=== PATIENT | male | born 1975 | race Caucasian/White ===

== ENCOUNTER 2022-05-01 19:35 | Emergency (ER) | payer BC, SELFPAY ==
--- NOTE | 2022-05-01 20:30 | DI.RAD_ITS ---
Exam(s) XR CHEST 2V PA LATERAL EXAM: XR CHEST 2V PA LATERAL CLINICAL HISTORY: persistent productive cough TECHNIQUE: 2D digital imaging was performed. COMPARISON: No exams were available for comparison FINDINGS: MEDIASTINUM: Normal. HEART: Normal. PULMONARY VASCULATURE: Normal. LUNGS: Clear. PLEURAL SPACE: No pleural effusion or pneumothorax. BONE:Degenerative changes are noted in the thoracic spine. IMPRESSION: No acute abnormality. DATA REPOSITORY: RADIATION DOSE DELIVERED:
--- NOTE | 2022-05-01 20:41 | ED.GENADUL_ITS ---
Discharge Plan Disposition Patient Disposition: HOME Condition: Stable Discharge Details Clinical Impression: Sinusitis, Cough Primary Care Provider: Unknown,Unknown ED Provider: Timothy Kohli Home Meds and New Rx's Prescriptions: New amoxicillin-pot clavulanate 875-125 mg tablet 1 tab PO BID 5 Days Qty: 10 0RF trazodone 100 mg tablet 100 mg PO QHS Qty: 30 0RF Discharge Instructions Instructions: Sinusitis (ED) Additional Instructions: Please follow-up with primary care physician. Please take medications as prescribed. Please return to emergency department for any worsening symptoms such as severe headache high fevers worsening cough trouble breathing or other abnormal symptomatology. Medical Decision Making 46 yr old male presents with 4 weeks of persistent nasal congestion and drainage, as well as cough productive of yellow sputum, conductive hearing loss, with serous left TM effusion; non toxic, lungs clear, no respiratory distress; likely component of sinusitis as well as chest congestion; consider, allergic v viral v bacterial in nature; must consider pneumonia however less likely; will treat for bacterial sinusitis, will also administer dexamethasone for antiinflammatory efffects; screening xray chest, reassess; likely home with close followup. 21: 53 patient resting comfortably no acute distress. Hemodynamically stable. X-ray clear. Will be discharged home with Augmentin prescription and refill of his home medication. HPI General Date/Time Provider Initiated Documentation: 05/01/22 20:25 . HPI Narrative: 46 yr old male presents with four weeks of nasal congestion, hearing loss, and productive cough, bringing up yellow green sputum; seen by financial sales assistant and found to have conductive hearing deficits bilaterally; occasional chills, multiple negative home covid tests Related Data Home Medications Medication Instructions Recorded Confirmed amoxicillin 875 mg-potassium 1 tab PO BID 5 days #10 tabs 05/01/22 clavulanate 125 mg tablet trazodone 100 mg tablet 100 mg PO QHS #30 tabs 05/01/22 Previous Rx's Medication Instructions Recorded amoxicillin 875 mg-potassium 1 tab PO BID 5 days #10 tabs 05/01/22 clavulanate 125 mg tablet trazodone 100 mg tablet 100 mg PO QHS #30 tabs 05/01/22 General Stated Complaint: EarProblem JOHN: 4 Review of Systems Narrative: Review of Systems Constitutional: negative Eyes: negative ENT: hearing loss, nasal congestion Cardiovascular: negative Respiratory: cough Gastrointestinal: negative : negative Musculoskeletal: negative Skin: negative Neurologic: negative Psych: negative PFSH All Active Problems (Updated 05/01/22 @ 21:55 by Timothy Kohli MD) Sinusitis (Acute) Cough (Acute) Social History Smoking/Tobacco Use Status: Never Smoking risk assessment performed?: Yes Do you feel safe at home: Yes Do you feel safe in your relationship?: Yes Exam Narrative Exam Narrative: Physical Examination General: alert, awake, cooperative, resting comfortably, no acute distress HEENT: serous effusion behind left TM, normal appearing right TM;normocephalic, atraumatic; PERRL, EOM intact, conjunctiva normal; no nasal discharge; moist mucous membranes, oral and pharyngeal mucosa normal, tolerating secretions Neck: supple, trachea midline; full ROM Chest: normal to inspection Respiratory: normal respiratory effort, speaking in full sentences, clear to aus cultation, no wheezing, rales or rhonchi Cardiac: regular rate, regular rhythm, S1S2 intact, no murmurs rubs or gallops GI: abdomen soft, non-tender, non-distended; no palpable mass or hepatosplenom egaly Skin: no lesions, rashes or trauma appreciated Neuro: AAOx3, normal speech, moving all extremities Psych: Appropriate mood and affect Course Vital Signs Vital signs: Respiratory Effort 05/01/22 19:45 PAWSS Have you Been Recently Intoxicated or Drunk Within the Last 30 days?: No Have you Ever Experienced Previous Episodes of Alcohol Withdrawal?: No Have you ever Experienced Withdrawal Seizures?: No Have you ever Experienced Delirium Tremens(DT)s?: No Have you ever undergone Alcohol Rehabilitation Treatment (i.e, inpt ot outpatient treatment programs)?: No Have you ever Experienced Blackouts?: No Have you ever Combined Alcohol with other Downers within the last 90 days?: No Have you ever Combined Alcohol with any other Substance of Abuse during the last 90 days?: No Positive Blood Alcohol level on Presentation? [PCS.BAL]: No Evidence of Increased Autonomic Activity (i.e. HR>120, tremor, sweating, agitation, nausea)?: No Result: 0
[2022-05-01] MEDS: Amoxicillin 875/Clav. 125 TAB PO (21:42)
[2022-05-01] MEDS: Dexamethasone 10 MG/ML VIAL IVP (21:42)
--- NOTE | 2022-05-01 21:51 | DI.VRAD_ITS ---
PROCEDURE INFORMATION: Exam: XR Chest Exam date and time: 05/01/2022 21:14 Age: 46 years old Clinical indication: Other: Persistent productive cough TECHNIQUE: Imaging protocol: Radiologic exam of the chest. Views: 2 views. COMPARISON: No relevant prior studies available. FINDINGS: Lungs: Mild hyperinflation without airspace consolidation. No significant interstitial disease for the degree of inflation. Pleural spaces: No pleural effusion. No pneumothorax. Heart/Mediastinum: No cardiomegaly. Bones/joints: No acute fracture. IMPRESSION: Mild hyperinflation without airspace consolidation. Dictated and Authenticated by: Whitney Pérez MD. Ordering:DEWAYNE Aguirre MD
--- NOTE | 2022-05-01 22:01 | NUR.NOTE ---
Referral to Care Management to establish pcp [facility]. 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
[2022-05-01] MEDS: Amox. 875/Clav. 125, 2 TABS/BTL 1 TAB PO (22:05)
== END 2022-05-01 22:12 | disposition home or self-care (01) ==
PROVIDERS: Emergency Provider Emergency Medicine
DX: J01.80 Other acute sinusitis (principal); R05.1 Acute cough
CPT/HCPCS: 96374; 99284; 71046; 99283; J1100

== ENCOUNTER 2022-07-15 13:40 | Emergency (ER) | payer BC, SELFPAY ==
[2022-07-15 13:44] VITALS: BP 170/113; PULSE 111; TEMP 36.5; O2SAT 98
--- NOTE | 2022-07-15 15:58 | ED.GENADUL_ITS ---
Discharge Plan Disposition Patient Disposition: HOME Condition: Stable Discharge Details Clinical Impression: Laceration of hand, left Primary Care Provider: Unknown,Unknown ED Provider: Luis Adair Home Meds and New Rx's Prescriptions: Continued trazodone 100 mg tablet 100 mg PO QHS Qty: 30 0RF Discharge Instructions Instructions: Laceration (ED) Additional Instructions: Sutures were placed today. Please keep wound dressing dry and intact for the next 48 hours. Remove dressing and change daily thereafter. Monitor for signs of infection including increased warmth, swelling, discharge, drainage or pain. Please keep sutures intact for the next 10 days. Please return ED to the emergency department for wound reassessment in 10 days. Please contact your primary care physician to arrange follow-up. Your blood pressure was elevated today. Please be sure to discuss this with your doctor. Should your blood pressure remain elevated, additional diagnostic testing and treatment may be indicated. Return to the ER immediately for any worsening or new concerning symptoms. Discharge Data Discharge Date/Time-TO BE ENTERED AT DEPARTURE: 07/15/22 18:42 Medical Decision Making 46-year-old male here with laceration of the hand at base of left fifth digit. Wound is oozing blood. Distal sensation intact. Flexor tendons intact. Wound was anesthetized with local injection of lidocaine 1% with epinephrine 4 mL. Wound was irrigated with copious sterile saline. Primary closure performed without complication. Patient unsure of last tetanus vaccination but believes he is vaccinated within the past 10 years. He provided informed refusal of vaccination. HPI General Date/Time Provider Initiated Documentation: 07/15/22 15:17 . Limitations to Documentation: no limitations . Information obtained by: patient . HPI Narrative: 46-year-old male presents with chief complaint of laceration. Patient notes he lacerated the base of his left fifth digit accidentally while working on bike with his pocket knife. Laceration was initially bleeding. Bleeding now stopped with pressure. He has no associated numbness or weakness. Related Data Home Medications Medication Instructions Recorded Confirmed trazodone 100 mg tablet 100 mg PO QHS #30 tabs 05/01/22 Previous Rx's Medication Instructions Recorded trazodone 100 mg tablet 100 mg PO QHS #30 tabs 05/01/22 Allergies Allergy/AdvReac Type Severity Reaction Status Date / Time No Known Allergies Allergy Unverified 07/15/22 13:49 General Stated Complaint: Laceration JOHN: 4 Review of Systems Musculoskeletal Musculoskeletal: Denies numbness and Denies tingling Integumentary/Breasts Skin/Breast: Reports as per HPI Neurologic Neurologic: Denies numbness and Denies tingling PFSH All Active Problems (Updated 07/15/22 @ 16:02 by Luis Adair MD) Laceration of hand, left (Acute) Social History Smoking/Tobacco Use Status: Never Smoking risk assessment performed?: Yes Alcohol Intake: current Alcohol Intake frequency: a few times a month Alcohol type: beer Drug use: Never Substance use type: does not use Do you feel safe at home: Yes Do you feel safe in your relationship?: Yes Exam Const General: cooperative Orientation: alert and awake Skin Trauma: laceration (2.5 cm base of left fifth digit, horizontal, no ligament involved) Neuro Motor: other (Flexor tendon is intact fifth digit) Other: Distal sensation fifth digit intact, motor fifth digit intact Course Vital Signs Vital signs: Vital Signs Temperature 36.5 C 07/15/22 13:44 Pulse 111 H 07/15/22 13:44 Blood Pressure 170/113 H 07/15/22 13:44 Pulse Oximetry 98 07/15/22 13:44 Temperature 36.5 C 07/15/22 13:44 Temperature Source Skin 07/15/22 13:44 Pulse 111 H 07/15/22 13:44 Blood Pressure 170/113 H 07/15/22 13:44 Blood Pressure Position Sitting 07/15/22 13:44 Pulse Oximetry 98 07/15/22 13:44 Oxygen Delivery Method Room Air 07/15/22 13:44 Oxygen Flow Rate 0 07/15/22 13:44 Pain Level 0 07/15/22 13:44 Procedures Laceration Laceration 1: Site: hand Side (If applicable): left Size (cm): 2.5 Description: linear Depth: simple, single layer Local Anesthetic: Lidocaine 1% and with Epi Amount of anesthesia used (mL): 4 Pre-repair: wound explored, irrigated extensively and deep structures intact Skin layer closed with: other (prolene) Size (cm): 5-0 Number of sutures: 4 Technique: simple, interrupted
== END 2022-07-15 18:42 | disposition home or self-care (01) ==
PROVIDERS: Emergency Provider Student in an Organized Health Care Education/Training Program
DX: S61.412A Laceration without foreign body of left hand, initial encounter (principal); Z23 Encounter for immunization; W26.0XXA Contact with knife, initial encounter
CPT/HCPCS: 12001; 90471; 99282